=== PATIENT | female | born 1935 | race Caucasian/White ===

== ENCOUNTER 2024-08-09 14:14 | Inpatient (IN) | payer MEDICARE ==
[~2024-08-09] VITALS: Ht 152.4 cm; Wt 62.6 kg
[2024-08-09] MEDS ORDERED: IV NORMAL SALINE 250 ML IV ONE (14:40)
[2024-08-09] MEDS ORDERED: SWABABLE VALVE TRANSFER SET EA MC ONE (14:40)
[2024-08-09] MEDS ORDERED: IOHEXOL 350 100 ML INFUS..BTL ONE ×2 (14:40→15:10)
[2024-08-09 14:51] LABS: BASOPHILS % (AUTO) 0.3 % (0.0-2.0); EOSINOPHILS # (AUTO) 0.1 K/uL (0.0-0.7); EOSINOPHILS % (AUTO) 1.1 % (0.0-7.0); HEMATOCRIT 41.3 % (31.2-41.9); HEMOGLOBIN 13.5 g/dL (10.9-14.3); LYMPHOCYTES # (AUTO) 0.8 K/uL (0.8-4.8); LYMPHOCYTES % (AUTO) 11.8 % (20.5-51.5); MEAN CORPUSCULAR HEMOGLOBIN 28.6 uug (24.7-32.8); MEAN CORPUSCULAR HGB CONC 33 g/dL (32.3-35.6); MEAN CORPUSCULAR VOLUME 87.9 fL (75.5-95.3); MONOCYTES # (AUTO) 0.5 K/uL (0.1-1.30); MONOCYTES % (AUTO) 6.6 % (0.0-11.0); NEUTROPHILS # (AUTO) 5.5 K/uL (1.8-8.9); NEUTROPHILS % (AUTO) 80.2 % (38.5-71.5); PLATELET COUNT (AUTO) 304 K/uL (179-408); RED CELL DISTRIBUTION WIDTH 16.3 % (12.3-17.7); WHITE BLOOD COUNT (AUTO) 6.9 K/uL (3.8-11.8)
[2024-08-09] MEDS ORDERED: OLME40TA18 PO (14:57)
[2024-08-09] MEDS ORDERED: FINA5TAB11 PO (14:57)
[2024-08-09] MEDS ORDERED: LEVO137T2 PO (14:57)
[2024-08-09] MEDS ORDERED: ABAL1.56 SQ (14:57)
[2024-08-09] MEDS ORDERED: PRAV80TA21 PO (14:57)
[2024-08-09] MEDS ORDERED: VERA180T24 PO (14:57)
[2024-08-09] MEDS ORDERED: TRIA1CAP19 PO (14:57)
[2024-08-09 15:14] LABS: ALANINE AMINOTRANSFERASE 29 U/L (14-59); ALBUMIN 3.8 g/dL (3.4-5.0); ALKALINE PHOSPHATASE 97 U/L (50-136); ASPARTATE AMINOTRANSFERASE 22 U/L (15-37); BILIRUBIN,DIRECT 0.1 mg/dL (0.0-0.2); BILIRUBIN,TOTAL 0.6 mg/dL (0.2-1.0); CALCIUM 9.7 mg/dL (8.5-10.1); CARBON DIOXIDE 27 mmol/L (21-32); CHLORIDE 106 mmol/L (98-107); CREATININE 0.7 mg/dL (0.6-1.3); GLUCOSE 109 mg/dL (74-106); SODIUM SERUM 146 mmol/L (136-145); UREA NITROGEN, BLOOD 21 mg/dL (7-18)
[2024-08-09 15:24] LABS: DIFFERENTIAL COMMENT 1
[2024-08-09 15:38] LABS: CHOLESTEROL 172 mg/dL (<200); HDL CHOLESTEROL 99 mg/dL (40-60); TRIGLYCERIDES 93 MG/DL (30-150)
[2024-08-09] MEDS ORDERED: ENOXAPARIN SODIUM 80 MG/0.8 ML DISP.SYRIN SQ ONE (17:01)
[2024-08-09] MEDS: ENOXAPARIN SODIUM 80 MG/0.8 ML DISP.SYRIN SQ ONE (17:01)
[2024-08-09 17:30] LABS: *BILIRUBIN,URIN NEGATIVE (NEGATIVE); *BLOOD, URINE NEGATIVE (NEGATIVE); *CLARITY,URINE CLEAR (CLEAR); *COLOR,URINE YELLOW (YELLOW); *KETONES,URINE NEGATIVE (NEGATIVE); *PROTEIN,URINE NEGATIVE (NEGATIVE); *UROBILINOGEN,URINE 0.2 E.U./dl (NORMAL); LEUKOCYTE ESTERASE ,URINE NEGATIVE (NEGATIVE); NITRITE, URINE NEGATIVE (NEGATIVE); UGLUCOSE NEGATIVE (NEGATIVE)
[2024-08-09] MEDS ORDERED: TEMAZEPAM 15 MG CAPSULE PO PRN (20:30)
[2024-08-09] MEDS ORDERED: ONDANSETRON 4 MG/2 ML VIAL IV PRN (20:30)
[2024-08-09] MEDS ORDERED: MAGNESIUM HYDROXIDE 30 ML LIQUID UDC PO PRN (20:30)
[2024-08-09] MEDS ORDERED: ACETAMINOPHEN 325 MG TABLET PO PRN (20:30)
[2024-08-09 21:04] VITALS: BP 171/94; TEMP 97.8; O2SAT 99
[2024-08-09] MEDS ORDERED: ENALAPRILAT DIHYDRATE 1.25 MG/1 ML VIAL IV PRN (21:15)
[2024-08-09] MEDS: DILTIAZEM HCL 60 MG TABLET PO SCH (21:34)
[2024-08-09] MEDS: DOCUSATE SODIUM 100 MG CAPSULE PO SCH (21:35)
[2024-08-09] MEDS: hydrALAZINE HCL 25 MG TABLET PO PRN (23:30)
[2024-08-10 00:18] VITALS: BP 163/85; TEMP 97.8; O2SAT 93
[2024-08-10 05:14] VITALS: BP 156/79; TEMP 96.8; O2SAT 99
[2024-08-10] MEDS: PANTOPRAZOLE SODIUM 40 MG TABLET.DR PO SCH (06:01)
[2024-08-10 07:11] LABS: BASOPHILS % (AUTO) 0.3 % (0.0-2.0); EOSINOPHILS # (AUTO) 0.1 K/uL (0.0-0.7); EOSINOPHILS % (AUTO) 1.7 % (0.0-7.0); HEMATOCRIT 37.6 % (31.2-41.9); HEMOGLOBIN 12.7 g/dL (10.9-14.3); LYMPHOCYTES # (AUTO) 1.5 K/uL (0.8-4.8); LYMPHOCYTES % (AUTO) 24.7 % (20.5-51.5); MEAN CORPUSCULAR HEMOGLOBIN 29.3 uug (24.7-32.8); MEAN CORPUSCULAR HGB CONC 34 g/dL (32.3-35.6); MEAN CORPUSCULAR VOLUME 86.7 fL (75.5-95.3); MONOCYTES # (AUTO) 0.6 K/uL (0.1-1.30); MONOCYTES % (AUTO) 10.3 % (0.0-11.0); NEUTROPHILS # (AUTO) 3.7 K/uL (1.8-8.9); PLATELET COUNT (AUTO) 303 K/uL (179-408); RED BLOOD CELL COUNT(AUTO) 4.34 MIL/uL (3.63-4.92); RED CELL DISTRIBUTION WIDTH 16.2 % (12.3-17.7); WHITE BLOOD COUNT (AUTO) 5.9 K/uL (3.8-11.8)
[2024-08-10 07:37] LABS: DIFFERENTIAL COMMENT 1
[2024-08-10 07:41] LABS: ALANINE AMINOTRANSFERASE 39 U/L (14-59); ALBUMIN 3.4 g/dL (3.4-5.0); ALKALINE PHOSPHATASE 88 U/L (50-136); ASPARTATE AMINOTRANSFERASE 28 U/L (15-37); BILIRUBIN,TOTAL 0.5 mg/dL (0.2-1.0); CALCIUM 9.2 mg/dL (8.5-10.1); CARBON DIOXIDE 29 mmol/L (21-32); CHLORIDE 102 mmol/L (98-107); CREATININE 0.6 mg/dL (0.6-1.3); GLUCOSE 92 mg/dL (74-106); MAGNESIUM 1.9 mg/dL (1.8-2.4); PHOSPHOROUS 3.2 mg/dL (2.5-4.9); POTASSIUM 3.4 mmol/L (3.5-5.1); SODIUM SERUM 142 mmol/L (136-145); TOTAL PROTEIN, SERUM 7.2 g/dL (6.4-8.2); UREA NITROGEN, BLOOD 14 mg/dL (7-18)
[2024-08-10 08:31] LABS: IRON, SERUM 56 ug/dL (50-175)
[2024-08-10 08:32] LABS: THYROID STIMULATING HORMONE 2.128 mIU/mL (0.358-3.740)
[2024-08-10] MEDS: ASPIRIN EC 81 MG TABLET.DR PO SCH (08:56)
[2024-08-10] MEDS: LOSARTAN POTASSIUM 50 MG TABLET PO SCH (08:57)
[2024-08-10] MEDS: APIXABAN 5 MG TABLET PO SCH (08:58)
[2024-08-10] MEDS ORDERED: VERAPAMIL SR 120 MG TABLET.SA PO SCH (09:00)
[2024-08-10] MEDS: DILTIAZEM HCL CD 120 MG CAP.SR.24H PO SCH (09:04)
[2024-08-10] MEDS: POTASSIUM CHLORIDE 20 MEQ TAB.PRT.SR PO ONE (09:04)
[2024-08-10 12:00] VITALS: BP 146/79; TEMP 96.8; O2SAT 99
[2024-08-10 16:00] VITALS: BP 133/73; TEMP 96.8; O2SAT 99
[2024-08-10 19:00] VITALS: BP 106/54; TEMP 98.5; O2SAT 92
[2024-08-10] MEDS: PRAVASTATIN 80 MG PO SCH (21:02)
[2024-08-11] VITALS (7 sets, daily range): BP systolic 146–185; BP diastolic 58–86; TEMP 97.4–98.7; O2SAT 94–97
[2024-08-11] MEDS: LEVOTHYROXINE SODIUM 137 MCG TABLET PO SCH (06:19)
[2024-08-11] MEDS: ABALOPARATIDE SQ SCH ×2 (09:00→20:28)
[2024-08-11] MEDS: DILTIAZEM HCL 30 MG TABLET PO ONE (16:31)
[2024-08-11] MEDS: PRAVASTATIN 80 MG PO SCH (20:28)
[2024-08-12 06:00] VITALS: BP 135/64; TEMP 98; O2SAT 95
[2024-08-12 07:05] LABS: BASOPHILS % (AUTO) 0.4 % (0.0-2.0); EOSINOPHILS # (AUTO) 0.2 K/uL (0.0-0.7); EOSINOPHILS % (AUTO) 2.8 % (0.0-7.0); HEMATOCRIT 38.9 % (31.2-41.9); HEMOGLOBIN 12.9 g/dL (10.9-14.3); LYMPHOCYTES # (AUTO) 1.1 K/uL (0.8-4.8); LYMPHOCYTES % (AUTO) 17.5 % (20.5-51.5); MEAN CORPUSCULAR HGB CONC 33 g/dL (32.3-35.6); MEAN CORPUSCULAR VOLUME 87.7 fL (75.5-95.3); MONOCYTES # (AUTO) 0.6 K/uL (0.1-1.30); NEUTROPHILS # (AUTO) 4.5 K/uL (1.8-8.9); NEUTROPHILS % (AUTO) 70.3 % (38.5-71.5); PLATELET COUNT (AUTO) 272 K/uL (179-408); RED BLOOD CELL COUNT(AUTO) 4.44 MIL/uL (3.63-4.92); RED CELL DISTRIBUTION WIDTH 15.7 % (12.3-17.7); WHITE BLOOD COUNT (AUTO) 6.4 K/uL (3.8-11.8)
[2024-08-12 07:11] LABS: DIFFERENTIAL COMMENT 1
[2024-08-12 08:07] VITALS: BP 135/64
[2024-08-12 08:13] LABS: CARBON DIOXIDE 26 mmol/L (21-32); CHLORIDE 110 mmol/L (98-107); CREATININE 0.8 mg/dL (0.6-1.3); GLUCOSE 90 mg/dL (74-106); PHOSPHOROUS 3.8 mg/dL (2.5-4.9); POTASSIUM 3.7 mmol/L (3.5-5.1); SODIUM SERUM 147 mmol/L (136-145); UREA NITROGEN, BLOOD 23 mg/dL (7-18)
[2024-08-12] MEDS ORDERED: PANT40TA49 PO (10:52)
[2024-08-12] MEDS ORDERED: APIX5TAB PO (10:52)
[2024-08-12] MEDS ORDERED: DILT180C66 PO (10:52)
== END 2024-08-12 11:57 | disposition home or self-care (01) | DRG 308 ==
LOC: ER 14:14 → TELE3 19:49 → MEDSURG3 08-11 10:55
PROVIDERS: ADMIT Internal Medicine; ATTEND Internal Medicine
DX: I48.91 Unspecified atrial fibrillation (principal); I63.9 Cerebral infarction, unspecified; R47.81 Slurred speech; R29.700 NIHSS score 0; I35.8 Other nonrheumatic aortic valve disorders; E78.5 Hyperlipidemia, unspecified; Z79.890 Hormone replacement therapy; E03.9 Hypothyroidism, unspecified; E87.6 Hypokalemia; E66.9 Obesity, unspecified; Z68.27 Body mass index [BMI] 27.0-27.9, adult; I11.0 Hypertensive heart disease with heart failure; I50.9 Heart failure, unspecified
CPT/HCPCS: 36415; 70450; 70496; 70551; 71045; 83550; 83735; 84100; 84443; 84484; 85025; 85730; 86850; 86900; 86901; 93307; A4663; G0378; J1650; Q9967